=== PATIENT | female | born 1960 | race Caucasian/White ===

== ENCOUNTER 2020-01-16 08:00 | Day surgery (SDC) | payer OTHER ==
--- NOTE | 2020-01-14 10:49 | RAD REPORT ---
EXAM DESCRIPTION: Barbara Bernstein (2 Views)01/14/2020 10:37 am CLINICAL HISTORY: Preop for mass removal groin COMPARISON: None FINDINGS: The lungs appear clear of acute infiltrate. The heart is normal size IMPRESSION: No acute abnormalities displayed
[2020-01-14 11:21] LABS: Potassium 4.1 mmol/L (3.5-5.1)
[2020-01-14 11:29] LABS: Absolute Lymphocytes (CBC) 2.4 K/uL (0.7-4.9); Basophils % 0.8 % (0-1.3); Hematocrit 33.2 % (36.0-45.0); Lymphocytes % 38.1 % (15.3-44.8); MPV 8.4 fL (7.6-11.3); RBC Red Blood Cell Count 4.56 M/uL (3.86-4.86)
[2020-01-14 12:28] LABS: Anisocytosis 1+; Blood Morphology Comment NOTED (NOT SEEN); Platelet Estimate ADEQ; White Blood Cell Scan OK (OK)
--- NOTE | 2020-01-15 11:47 | EKG ---
Test Date: 2020-01-14 Test Time: 10:18:49 [place] [employer]: MAG MEASUREMENT RESULTS: Intervals: Rate: 65 OK: 128 QRSD: 86 QT: 410 QTc: 426 [place]: P: 4 OK: 128 QRS: 49 T: 53 INTERPRETIVE STATEMENTS: Normal sinus rhythm Normal ECG No previous ECG available for comparison Electronically Signed On 01-15-20 11:40:50 WASH[employer]UTTER by Jose Alvarez
--- OUTSIDE RECORDS SUMMARY | 2020-01-16 08:21 | XMS REPORT | Clinical Summary ---
:1960 Author Organization [facility] Address [address] [place] [address] Care Team Providers Name Role Phone Jd Hugo MD Primary Care Provider Allergies No Known Active Allergies Medications Medication Sig Dispensed Refills Start Date End Date Status pantoprazole (PROTONIX) TK 1 T PO D 5 12/14/2017 Active 40 MG EC tablet norethindrone ac-eth Take 1 tablet by 0 Active estradiol (JEVANTIQUE mouth daily. LO) 0.5-2.5 mg-mcg per tablet Active Problems Not on file Surgical History Surgery Date Site/Laterality Comments GASTRECTOMY, SLEEVE, 07/08/2015 - Dr. Sparks LAPAROSCOPIC 08/06/2015 ESOPHAGEAL MANOMETRY WITH 01/25/2018 N/A Proced ure: ESOPHAGEAL IMPEDANCE PROBE MANOMETRY WITH I MPEDANCE PROBE; Surgeon: Emmanuelle Shields MD; Location: [facility]; Service: Gastroenterology ; Laterality: N/A; Medical History Medical History Date Comments GERD (gastroesophageal reflux disease) Family History Medical History Relation Name Comments Melanoma Brother Hypertension Father No Known Problems Mother Relation Name Status Comments Brother Father Mother Alive Social History Tobacco Use Types Packs/Day Years Used Date Never Smoker Smokeless Tobacco: Never Used Alcohol Use Drinks/Week oz/Week Comments No Alcohol Habits Answer Date Recorded How often do you have a drink containing alcohol? Never 12/19/2017 How many drinks containing alcohol do you have on a typical Not asked day when you are drinking? How often do you have six or more drinks on one occasion? No t asked Sex Assigned at Date Recorded Not on file Last Filed Vital Signs Not on file Plan of Treatment Health Maintenance Due Date Last Done Comments CERVICAL CANCER SCREENING 08/04/1979 BREAST CANCER SCREENING 2008 COLONOSCOPY SCREENING 2008 SHINGLES VACCINES (#1) 2008 INFLUENZA VACCINE 09/07/2019 Results Not on fileafter 01/15/2019 Advance Directives For more information, please contact: [phone] Type Date Recorded Patient Chief Clinical Dietitian Explanati on Advance Directives, Living 01/25/2018 8:33 AM Will and Medical Power of Industrial Production Manager
--- OUTSIDE RECORDS SUMMARY | 2020-01-16 08:21 | XMS REPORT | Continuity of Care Document ---
:1960 Author Organization [facility] t Address [address] [place] [address] [address] [place] [address] Care Team Providers Name Role Phone Bethel NGUYEN, Jd Primary Care Physician Problems This patient has no known problems. Allergies, Adverse Reactions, Alerts This patient has no known allergies or adverse reactions. Family History Family Member Diagnosis Comments Start Date Stop Date Source Natural brother Melanoma [facility] Natural father Hypertension [facility] Natural mother No Known Problems [facility] Social History Social Habit Start Date Stop Date Quantity Comments Source History [facility] Meth odist Alcohol Std Drinks History [facility] odist Alcohol Binge Sex Assigned At [facility] Tobacco use and 2018-01-26 2018-01-[address] [facility]00 Alcohol intake 2018-01-26 2018-01-26 Current [facility] thodist 00:00:00 00:00:00 non-drinker of alcohol (finding) History [facility] 2017-12-19 2017-12-19 1 [place] [facility] Alcohol Frequency 00:00:00 00:00:00 Smoking Status Start Date Stop Date Source Never smoker [facility] Medications Ordered Filled Start Stop Current Ordering Indication Dosage Frequency Signature Comments Components Source Medication Medication Date Date Medication? Clinician (SIG) Name Name norethindro 2017-02 Yes 1{tbl} QD Take 1 Ho sondra ne ac-eth 2-20 tablet by [facility] di estradiol 10:22: mouth st (JEVANTIQUE 22 daily. LO) 0.5-2.5 mg-mcg per tablet pantoprazol 2017-02 Yes TK 1 T PO [place] 02-13 D [facility] (PROTONIX) 00:00: st 40 MG EC 00 tablet Procedures This patient has no known procedures. Plan of Care Planned Activity Planned Date Details Comments Source Future Scheduled 2019-09-07 INFLUENZA VACCINE [place] [facility] 00:00:00 [code = INFLUENZA VACCINE] Future Scheduled 2008 BREAST CANCER [facility] thodist Test 00:00:00 SCREENING [code = BREAST CANCER SCREENING] Future Scheduled 2008 COLONOSCOPY SCREENING [place] [facility] Test 00:00:00 [code = COLONOSCOPY SCREENING] Future Scheduled 2008 SHINGLES VACCINES [place] [facility] Test 00:00:00 (#1) [code = SHINGLES VACCINES (#1)] Future Scheduled 1979-08-04 Screening for [facility] thodist Test 00:00:00 malignant neoplasm of cervix (procedure) [code = 430702199] Results This patient has no known results.
[2020-01-16] MEDS ORDERED: CEFAZOLIN/SWI 1gm 1 GM/10 ML SYR ONE (08:36)
[2020-01-16] MEDS ORDERED: Ringers Lactate 1,000 ML IV ONE (08:36)
[2020-01-16] MEDS ORDERED: MIDAZOLAM HCL 2 MG/2 ML INJ ONE (08:53)
[2020-01-16] MEDS ORDERED: propofoL 200 MG/20 ML VIAL IV ONE (08:53)
[2020-01-16] MEDS ORDERED: FENTANYL CITR 100 MCG/2 ML ONE (08:53)
[2020-01-16] MEDS ORDERED: LIDOCAINE 1% MPF 5 ML VIAL ONE (08:53)
[2020-01-16] MEDS ORDERED: dexAMETHasone 10 MG/ML VIAL ONE (09:36)
[2020-01-16] MEDS ORDERED: KETOROLAC 30 MG/ML INJ ONE (09:36)
[2020-01-16] MEDS ORDERED: ONDANSETRON 4 MG/2 ML VIAL ONE (09:43)
--- NOTE | 2020-01-16 10:26 | OP ---
Date of Procedure: 01/16/2020 Surgeon: Filemon Castorena MD Consumer Attorney: None. Preoperative Diagnosis: Right groin mass. Postoperative Diagnosis: Right groin mass. Procedure: Excision of right groin mass, 5 x 3 cm, with layered closure. Estimated Blood Loss: Minimal. Specimen: Right groin mass. Finding: Lipoma. Anesthesia: General. Complications: None. Disposition: The patient tolerated the procedure in stable condition and taken to Recovery in good g eneral condition. Procedure In Detail: The patient was brought to the OR and placed in supine position. General anest hesia begun. The patient was prepped and draped in the usual sterile fashion in the lithotomy positi on. Marcaine 0.5% was infiltrated locally. Then, a 5 cm incision was made in the right groin. Subc utaneous tissue was divided. Deep to that, a large lipoma 5 x 3 cm excised and sent to Pathology as specimen. Wound was irrigated. Bleeding was controlled with cautery. A 3-0 chromic was used to farideh roximate the subcutaneous tissue and 5-0 nylon used to close the skin. Sterile dressing was applied. The patient was awakened and taken to Recovery in good general condition. Discharge Note: Discharge Note: The patient will go to Day Surgery and home when stable. Disposition: Home. Condition: Stable. Discharge Instructions: Resume home medications and diet. Activity as tolerated. No heavy lifting. Remove outer dressing in 2 days. Shower. Keep wound clean and dry. Follow up in my office 10 day s. Call for appointment. Tylenol No.3 one tablet p.o. q.4 p.r.n. pain, Keflex 500 mg p.o. q.6. /MODL Voice ID: [id number] Report ID: [id number]
[2020-01-16 10:40] VITALS: BP 128/63; TEMP 97.2; O2SAT 100
[2020-01-16] MEDS ORDERED: HYDROCODONE/APAP 7.5/325 MG TAB ONE (10:57)
== END 2020-01-16 11:10 | disposition home or self-care (01) ==
LOC: OR 08:00
PROVIDERS: ATTEND Surgery
PROC: 0JB80ZZ Excision of Abdomen Subcutaneous Tissue and Fascia, Open Approach (ICD-10-PCS; principal; 2020-01-16 09:00)
DX: D17.1 Benign lipomatous neoplasm of skin and subcutaneous tissue of trunk (principal); Z20.828 Contact with and (suspected) exposure to other viral communicable diseases; Z87.891 Personal history of nicotine dependence; K21.9 Gastro-esophageal reflux disease without esophagitis; E66.9 Obesity, unspecified
CPT/HCPCS: 93005; 85025; 80048; 36415; 88304; 71046; 11406; 12032; U0002; J2704; J2250; J3010; J1100; J0690; J7120; J2405; 88305